=== PATIENT | female | born 1970 | race Two or more races ===

== ENCOUNTER 2023-04-03 21:41 | Inpatient (IN) | payer OTHER ==
[~2023-04-03] VITALS: Ht 160 cm; Wt 56.7 kg
[2023-04-07] MEDS ORDERED: POTASSIUM CHLO20 ME1 (07:47)
[2023-04-07] MEDS ORDERED: OMEPRAZOLE40 MG (07:47)
[2023-04-07] MEDS ORDERED: TRAMADOL HCL50 MG (07:47)
[2023-04-07] MEDS ORDERED: DICYCLOMINE HCL20 MG (07:47)
[2023-04-07] MEDS ORDERED: LINZESS145 MCG (07:47)
[2023-04-07] MEDS ORDERED: ONDANSETRON ODT8 MG (07:50)
[2023-04-07] MEDS ORDERED: NITRO-BID1 G1 (07:51)
[2023-04-07] MEDS ORDERED: [UNRECOGNIZED DRUG - OTHER] (07:51)
[2023-04-07] MEDS ORDERED: MORPHINE SULFAT15 M4 (07:51)
[2023-04-07] MEDS ORDERED: PREGABALIN75 MG (07:51)
[2023-04-07] MEDS ORDERED: ESTRADIOL1 EAC1 (07:51)
[2023-04-07] MEDS ORDERED: NIFEDIPINE ER30 MG (07:52)
[2023-04-07] MEDS ORDERED: FUROSEMIDE40 MG (07:52)
== END 2023-04-10 11:12 | disposition home or self-care (01) | DRG 177 ==
LOC: ER 21:41 → SEC-K 04-04 14:23 → MEDJ 04-04 14:35 → SEC-K 04-04 16:11 → MEDJ 04-06 09:29
PROVIDERS: General Practice; Student in an Organized Health Care Education/Training Program; ADMIT Internal Medicine; ATTEND Internal Medicine
PROC: BB24Y0Z Computerized Tomography (CT Scan) of Bilateral Lungs using Other Contrast, Unenhanced and Enhanced (ICD-10-PCS; principal; 2023-04-04)
PROC: 3E0F7GC Introduction of Other Therapeutic Substance into Respiratory Tract, Via Natural or Artificial Opening (ICD-10-PCS; 2023-04-04)
PROC: 02HV33Z Insertion of Infusion Device into Superior Vena Cava, Percutaneous Approach (ICD-10-PCS; 2023-04-05)
PROC: XW033E5 Introduction of Remdesivir Anti-infective into Peripheral Vein, Percutaneous Approach, New Technology Group 5 (ICD-10-PCS; 2023-04-05)
PROC: 4A12X4Z Monitoring of Cardiac Electrical Activity, External Approach (ICD-10-PCS; 2023-04-06)
DX: U07.1 COVID-19 (principal); J12.82 Pneumonia due to coronavirus disease 2019; R09.02 Hypoxemia; I27.21 Secondary pulmonary arterial hypertension